=== PATIENT | female | born 1995 | race American Indian/Alaskan Native ===

== ENCOUNTER 2017-02-01 02:57 | Emergency (ER) | payer OTHER ==
[2017-02-01] MEDS ORDERED: ZOFRAN ODT PO ONE (04:55)
[2017-02-01] MEDS ORDERED: MORPHINE IM ONE (04:55)
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
[2017-02-01 06:13] VITALS: BP 131/84
--- NOTE | 2017-02-01 09:28 | XRay Report ---
RIGHT FOOT, 3 views: History: Right foot pain and swelling. The bony architecture is intact. Bony alignment is normal. No soft tissue abnormalities are seen. The joint spaces appear preserved. IMPRESSION: Normal right foot.
== END 2017-02-01 06:14 | disposition home or self-care (01) ==
LOC: ED 02:57
DX: S92.254A Nondisplaced fracture of navicular [scaphoid] of right foot, initial encounter for closed fracture (principal); X58.XXXA Exposure to other specified factors, initial encounter; Y93.89 Activity, other specified; Y99.8 Other external cause status; Y92.89 Other specified places as the place of occurrence of the external cause
CPT/HCPCS: 29515; 73630; 96372; 99284; J2270; Q0162